=== PATIENT | male | born 1970 | race Caucasian/White ===

== ENCOUNTER 2017-05-23 10:43 | Day surgery (SDC) | payer OTHER ==
[~2017-05-23 10:43] MED LIST: CLARITIN-D 241 EACH PO
[2017-05-23] MEDS ORDERED: MIRALAX17 GM PO (18:26)
[2017-05-23] MEDS ORDERED: NEURONTIN300 MG PO (18:26)
[2017-05-23] MEDS ORDERED: ZOFRAN ODT4 MG PO (18:26)
[2017-05-23] MEDS ORDERED: PERCOCET 5-3251 EACH PO (18:26)
== END 2017-05-23 21:35 | disposition home or self-care (01) ==
LOC: CIR.AMB 10:43
DX: K40.20 Bilateral inguinal hernia, without obstruction or gangrene, not specified as recurrent (principal); K42.9 Umbilical hernia without obstruction or gangrene